=== PATIENT | male | born 1985 | race Caucasian/White ===

== ENCOUNTER 2024-07-29 18:11 | Emergency (ER) | payer OTHER, SELFPAY ==
[2024-07-29 18:16] VITALS: BP 124/86
[2024-07-29 18:38] LABS: Urine Albumin 3+ (Neg - Trace); Urine Bilirubin Negative (Negative); Urine Character Cloudy (Clear); Urine Color Yellow; Urine Glucose Negative (Negative); Urine Ketone Negative (Negative); Urine Leukocyte 3+ (Negative); Urine Nitrite Negative (Negative); Urine Occult Blood 4+ (Negative); Urine Specific Gravity 1.015 (<1.030); Urine Urobilinogen 3+ (Neg - 1+); Urine pH 6.5 (5.0-9.0)
[2024-07-29 18:39] LABS: % Basophils 0.7 % (0-2); % Eosinophils 0.6 % (0-6); % Immature Granulocytes 0.2 % (0-0.5); % Lymphocytes 11.7 % (20.5-51.1); % Neutrophils 80.8 % (42.2-75.2); Absolute Basophils 0.1 10^3/uL (0-0.2); Absolute Eosinophils 0.1 10^3/uL (0-0.7); Absolute Lymphocytes 1.6 10^3/uL (1.2-3.4); Absolute Monocytes 0.8 10^3/uL (0.1-0.6); Absolute Neutrophils 11.1 10^3/uL (1.4-6.5); Hematocrit 44.4 % (39.0-52.0); Hemoglobin 15.8 g/dL (13.0-18.0); Mean Corp Hgb Conc. 35.6 g/dL (33.0-37.0); Mean Corpuscular Hgb 30.3 pg (27.0-31.0); Mean Corpuscular Volume 85.1 fL (80.0-94.0); Mean Platelet Volume 9.2 fL (7.4-10.4); Nucleated Red Blood Cells % 0 % (-); Platelet Count 188 10^3/uL (130-400); Red Blood Cell Count 5.22 10^6/uL (4.70-6.10); Red Cell Dist. Width 11.9 % (11.5-14.5); White Blood Cell Count 13.8 10^3/uL (4.8-10.8)
[2024-07-29 18:43] LABS: Urine Red Blood Cell >100 /HPF (0-2); Urine Squamous Cell 16-20 /LPF (Few); Urine White Cell >100 /HPF (0-5)
[2024-07-29 18:50] LABS: ALT (SGPT) 52 U/L (0-50); AST (SGOT) 27 U/L (17-59); Albumin 4.1 g/dl (3.5-5.0); Alkaline Phosphatase 61 U/L (38-126); Blood Urea Nitrogen 14 mg/dl (9-20); Calcium 9.6 mg/dl (8.4-10.2); Carbon Dioxide 29 mmol/L (22-30); Chloride 103 mmol/L (98-107); Glucose 112 mg/dl (70-99); Potassium 4.2 mmol/L (3.5-5.1); Sodium 140 mmol/L (135-145); Total Bilirubin 1.2 mg/dl (0.2-1.3); Total Protein 6.8 g/dl (6.3-8.2); eGFR > 60.00
[2024-07-29] MEDS: TYLENOL 650 MG PO (20:37)
[2024-07-29 20:42] VITALS: BMI 30.9
--- NOTE | 2024-07-29 20:43 | ED.GENMED ---
History of Present Illness
General
Chief Complaint: Fever
Source: patient
Exam Limitations: none
Time Seen by Provider: 07/29/24 20:19
Nursing documentation reviewed up to this point in time: agreed with
History of Present Illness
History of Present Illness:
Patient is a 38-year-old male with history of kidney stones presenting to the emergency department with dysuria and hematuria associated with fever and low back pain since yesterday. Patient states that yesterday he had a fever with a temp as high
as 102.2F. He then noticed that last night he was having some dysuria and blood in his urine. Patient states that this morning he then started with lower back pain as well as lower abdominal pain. He denies any testicular pain. He denies any
nausea or vomiting. Patient denies any cough, chest pain, or shortness of breath. No diarrhea.
Patient did take 1 dose of amoxicillin which she had at home from prior illness this morning.
Patient sexually active with 1 partner. No history of STIs/STDs.
Review of Systems
Review of Systems
Allergies reviewed?: Yes
All Other Systems: ROS reviewed and negative except as documented in HPI and ROS
Phy Exam
Physical Exam
Physical Exam:
Vitals: Patient's vital signs are stable. Afebrile
General: Patient is well appearing, no acute distress. Nontoxic appearing
Skin: Warm and dry, no rashes or lesions
Head: Normocephalic, atraumatic
Eyes: Sclera nonicteric. EOMs intact. No nystagmus.
Throat: Protecting airway
Neck: Normal ROM, no cervical spine tenderness, no meningismus
Cardiac: Regular rate and rhythm, no murmurs.
Pulm: Normal respiratory effort, no wheezes, rales, rhonchi heard on exam.
Abdomen: Abdomen soft. Very minimal tenderness in suprapubic/left lower quadrant. No rebound tenderness or guarding. No CVA tenderness.
Extremities: No evidence of cyanosis or edema. Palpable DP pulses bilaterally
Neuro: AAOx3. Grossly intact.
Psychiatric: Normal affect.
Course
Orders/Labs/Results
Orders:
Orders
07/29/24 18:27
Complete Blood Count/With Diff Urgent
Comprehensive Metabolic Panel Urgent
07/29/24 18:28
Urinalysis Reflex To Culture Urgent
Date Specimen was Collected: 07/29/24
Time Specimen was Collected: 18:19
Urine Microscopic Reflex Cult Urgent
Urine Culture Urgent
CORBIN Source: U
Specimen Description:
Date Specimen was Collected: 07/29/24
Time Specimen was Collected: 18:19
07/29/24 20:22
Abdomen/Pelvis wo Contrast CT [CT Abd/pelvis Wo Iv Cont] Urgent
Comment:
Reason For Exam: lower back pain, hematuria
07/29/24 20:34
Acetaminophen [Tylenol] 650 mg PO NOW STA
07/29/24 21:37
CefTRIAXone [Rocephin] 1,000 mg Intramuscular Injection 0 ml IM ONCE
07/29/24 21:38
Vital Signs- Treatment ONCE
Frequency: Once
Abnormal Lab Results
07/29/24 07/29/24
18:27 18:28
WBC 13.8 H 10^3/uL
(4.8-10.8)
Absolute Neuts (auto) 11.1 H 10^3/uL
(1.4-6.5)
Absolute Monos (auto) 0.8 H 10^3/uL
(0.1-0.6)
Neutrophils % 80.8 H %
(42.2-75.2)
Lymphocytes % 11.7 L %
(20.5-51.1)
Glucose 112 H mg/dl
(70-99)
ALT 52 H U/L
(0-50)
Ur Occult Blood Reflex 4+ A
(Negative)
Urine Urobilinogen 3+ A
(Neg - 1+)
Leukocyte Esterase Rfl 3+ A
(Negative)
Urine RBC >100 A /HPF
(0-2)
Urine WBC (Reflex) >100 A /HPF
(0-5)
Urine Albumin (Reflex) 3+ A
(Neg - Trace)
07/29/24 18:27
07/29/24 18:27
Vital Signs
Initial and Last Documented VS:
Initial Vital Signs
Temp Pulse Resp BP Pulse Ox
98.9 F 92 16 124/86 97
07/29/24 18:16 07/29/24 18:16 07/29/24 18:16 07/29/24 18:16 07/29/24 18:16
Last Documented Vital Signs
Temp Pulse Resp BP Pulse Ox
98.9 F 92 16 124/86 97
07/29/24 18:16 07/29/24 18:16 07/29/24 18:16 07/29/24 18:16 07/29/24 18:16
MDM/Problems Addressed
Differential Diagnosis Includes:
Not limited to: UTI, pyelonephritis, ureterolithiasis, epididymitis, orchitis, etc.
MDM/Problems Addressed:
38-year-old male presenting with acute UTI associated with low back discomfort and fever. No vomiting, chest pain, or shortness of breath. Vital stable. He is afebrile on arrival to emergency department. Physical exam as above. Patient very
well-appearing, nontoxic. Abdomen soft and nontender. No CVA tenderness. Cardio/pulmonary assessment unremarkable. Basic labs are sent off in triage significant for leukocytosis of 13.8 with left shift. Chemistry unremarkable. Urine does
appear infected with greater than 100 WBCs and 3+ leukocyte Estrace. Given evidence of UTI along with signs of ascending infection�will obtain noncontrast CT scan to rule out obstructive uropathy. Likely ascending UTI versus pyelonephritis. Will
give Tylenol. Will closely monitor and reassess.
Update: CT reviewed. Findings suspicious of cystitis without evidence of obstructive uropathy. Ultimate impression is likely complicated UTI/pyelonephritis. Patient very well and comfortable appearing. He does not meet sepsis criteria. He is
nontoxic-appearing. Feel he is stable for outpatient management. He is leaving for [place] tomorrow. Will give IM dose of Rocephin in ED and sent home with oral cefpodoxime for 10 days. Patient given printed prescription if needed. Very strict
return precautions discussed which patient expressed understanding. Stable for discharge home.
Chronic conditions affecting care:
History of kidney stones
Acute Exacerbation and/or Progression of Chronic Illness:
Acute UTI
*Radiology
Radiology exam reviewed: radiology read reviewed (Cystitis without findings of obstructive uropathy)
*Pulse Oximetry
Patient hypoxic: no
*EKG
Interpreted by ED Provider?: NA
*Drill Operator Automatic Interpretation
Rate: Drill Operator Automatic- N/A
*Critical Care Note
Total Time (30-74mins, 75-104mins- exclusive of procedures): Not Applicable
ED Attending Note
-
Portions of this chart may have been created with voice recognition software.� Occasional wrong word or��sound alike� substitutions may have occurred due to the inherent limitations of voice recognition software.
Discharge Plan
Departure
Patient Disposition: Home (Routine Discharge)
Date of Disposition: 07/29/24
Time of Disposition: 21:39
Patient with high blood pressure during this ER visit?: No
Condition: Good
Covid-19: Not Applicable
Discharge Problem:
Acute pyelonephritis
Instructions: Urinary tract infection in adults - ED discharge instructions
Prescriptions:
New
cefpodoxime 200 mg tablet
200 mg PO BID 10 Days Qty: 20 0RF
Referrals:
Piter Munoz MD [Family Provider] - Follow up in 5-7 days
Activity Restrictions/Additional Instructions:
Return to the emergency department for any high fevers, worsening abdominal/back pain, intractable nausea/vomiting, inability to urinate, signs of severe dehydration, or any other concerns
-As discussed�your urinalysis showed signs of infection while in the emergency department. Your CT scan showed no evidence of kidney stone.
-You were given a dose of IM antibiotic in the emergency department. You should resume your oral antibiotics tomorrow morning and take twice a day for the next 10 days. These have been sent to your pharmacy
-You can take Tylenol and/or Motrin as needed for/pain. It is important to stay very well-hydrated.
-Follow-up with primary care for further evaluation/manage to ensure that symptoms are improving
Monitor your symptoms closely and return to the emergency department with any acute worsening/new symptoms or any other concerns
Interventions
Interventions:
*General Assessment Last Done: 07/29/24 20:45
*Neglect/Abuse Screening Last Done: 07/29/24 20:45
*ED- Fall Risk Assessment Last Done: 07/29/24 20:45
*ED COVID-19 Vaccine History Last Done: 07/29/24 20:45
ED- Neurological Assessment Last Done: 07/29/24 20:45
ED-Skin Assessment Last Done: 07/29/24 20:45
Discharge Date and Time
Print Language: LITHUANIAN
[2024-07-29] MEDS: ROCEPHIN 2.8571 MG IM (22:23)
== END 2024-07-29 22:46 | disposition home or self-care (01) ==
LOC: EMR 18:11
PROVIDERS: Emergency Medicine; EMERGENCY PHYSICIAN Emergency Medicine; FAMILY PHYSICIAN Internal Medicine
DX: N10 Acute pyelonephritis (principal); Z87.442 Personal history of urinary calculi
CPT/HCPCS: 99284; 96372; 74176; 80053; 81003; 81015; 85025; 87086